=== PATIENT | female | born 1940 | race Caucasian/White ===

== ENCOUNTER → 2024-03-23 12:17 | Outpatient (CLI) | payer MEDICARE, SELFPAY ==
[2024-03-23 15:11] LABS: Vitamin B12 667 pg/mL (239-931)
== END ==
PROVIDERS: Referring Provider Internal Medicine; Visit Provider Internal Medicine
DX: D51.0 Vitamin B12 deficiency anemia due to intrinsic factor deficiency (principal)
CPT/HCPCS: 36415; 82607

== ENCOUNTER → 2024-05-11 09:52 | Outpatient (CLI) | payer MEDICARE, SELFPAY ==
[2024-05-11 10:47] LABS: Add Manual Diff / Slide Review NO; Basophils Absolute Auto 200 /uL (0-100); Basophils Percent Auto 2.2 % (0-2); Eosinophils Absolute Auto 400 /uL (0-450); Eosinophils Percent Auto 3.4 % (2-4); Hematocrit 41.5 % (36-46); Hemoglobin 13.7 g/dL (12.0-16.0); Lymphocytes Absolute Auto 2900 /uL (1100-4500); Lymphocytes Percent Auto 27.8 % (25-40); Mean Corpuscular HGB Conc 32.9 % (30-36); Mean Corpuscular Hemoglobin 30.7 PG (26-34); Mean Corpuscular Volume 93.1 fL (80-100); Monocytes Absolute Auto 1000 /uL (0-900); Monocytes Percent Auto 9.4 % (3-14); Neutrophils Absolute Auto 5900 /uL (1500-7000); Neutrophils Percent Auto 57.2 % (50-75); Platelet Count 253 X10^3/uL (150-400); Red Blood Cell Count 4.46 X10^6/uL (4.0-5.2); White Blood Cell Count 10.3 X10^3/uL (4.5-11.0)
[2024-05-11 10:54] LABS: Alanine Aminotransferase 18 IU/L (<35); Albumin Globulin Ratio 1.4 (1.0-2.8); Alkaline Phosphatase 115 U/L (38-126); Aspartate Aminotransferase 24 IU/L (14-36); BUN Creatinine Ratio 17.5 (6-22); Bilirubin Total 0.6 mg/dL (0.2-1.3); Blood Urea Nitrogen 22 mg/dL (7-17); Calcium 9.5 mg/dL (8.4-10.2); Carbon Dioxide 25 mmol/L (22-32); Chloride 111 mmol/L (98-107); Cholesterol 192 mg/dL (140-199); Estimated Glomerular Filt Rate 42 mL/min (>60); Globulin 2.8 g/dL (1.7-4.1); Glucose 117 mg/dL (80-110); HDL Cholesterol 47 mg/dL (40-60); HEMOLYSIS < 15 (0-50); LDL Cholesterol Calculated 104 mg/dL (<100); Lipase 352 U/L (23-300); Sodium 143 mmol/L (137-145); Total Protein 6.8 g/dL (6.3-8.2); Triglycerides 205 mg/dL (35-150)
[2024-05-11 11:08] LABS: Hemoglobin A1C% w Est Avg Glu 7.1 % (4.0-6.0)
[2024-05-11 11:32] LABS: TSH w/ Reflex to FT4 3.45 uIU/mL (0.47-4.68)
[2024-05-11 11:44] LABS: Vitamin B12 Reflex MMA if <400 688 pg/mL (239-931)
[2024-05-11 12:56] LABS: Creatinine Urine Random 136.74 mg/dL
== END ==
PROVIDERS: PCP Family Medicine; Referring Provider Family Medicine; Visit Provider Family Medicine
DX: Z00.00 Encounter for general adult medical examination without abnormal findings (principal); E11.9 Type 2 diabetes mellitus without complications; Z13.220 Encounter for screening for lipoid disorders; Z78.9 Other specified health status; Z76.89 Persons encountering health services in other specified circumstances; E03.9 Hypothyroidism, unspecified
CPT/HCPCS: 36415; 80053; 80061; 82043; 82570; 82607; 83036; 83690; 84443; 85025

== ENCOUNTER → 2024-06-25 14:59 | Outpatient (CLI) | payer MEDICARE, SELFPAY ==
--- NOTE | 2024-06-25 15:00 | DI.ECHO.S_ITS ---
[facility] : : [address] : : [place] : : [address] : : Phone: [phone] Echocardiogram Report + + :Name: EJ CHOI Study Date: 06/25/2024 Height: 66 in : :[facility] ReadingLocation: Weight: 167 lb : : Gender: Female BSA: 1.9 m2 : :: 1940 Age: 84 yrs BP: 173/70 mmHg: :Reason For Study: Atrial fibrillation : :Ordering Physician: CAROLA, : :LEVAR Performed By: Gabby Chavis : :Referring: LEVAR SRIVASTAVA : + + Interpretation Summary The left ventricle is normal in size. The ejection fraction is estimated to be 35-40%. Hypokinetic mid to distal inferoseptum, mid anteroseptum, mid to distal inferior wall, mid to distal inferior lateral wall. The right ventricular cavity is small. Visually RV function appears to be preserved. The left atrium is severely dilated. There is mild to moderate mitral regurgitation. There is mild to moderate aortic regurgitation. The IVC is of normal diameter and collapses greater than 50% with a sniff. This suggests a low right atrial pressure of 3 mm Hg. Procedure: A two-dimensional transthoracic echocardiogram with color flow and Doppler was performed. The study quality was technically adequate. There is no prior echocardiogram noted for this patient. The heart rate ranged between 61-67 bpm during the study. The patient was in normal sinus rhythm during the exam. Left Ventricle: The left ventricle is normal in size. Proximal septal thickening is noted. There is no echo evidence for significant left ventricular outflow tract obstruction. There is no thrombus. The ejection fraction is estimated to be 35-40%. Hypokinetic mid to distal inferoseptum, mid anteroseptum, mid to distal inferior wall, mid to distal inferior lateral wall. MV E/A: 0.52 Med Peak E' Julian: 3.0 cm/sec E/E' med: 21.5. Right Ventricle: The right ventricular cavity is small. Visually RV function appears to be preserved. Atria: The left atrium is severely dilated. Right atrial size is normal. The interatrial septum grossly appears intact with no obvious evidence for an atrial septal defect. Mitral Valve: The mitral valve leaflets appear mildly thickened, but open well. There is mild to moderate mitral annular calcification. There is mild to moderate mitral regurgitation. Aortic Valve: The aortic valve is trileaflet. The aortic valve opens well. There is no aortic valve stenosis. There is mild to moderate aortic regurgitation. Tricuspid Valve: The tricuspid valve is normal. There is trace tricuspid regurgitation. Pulmonary artery pressures cannot be estimated because of the lack of a measurable TR jet velocity. Pulmonic Valve: The pulmonic valve is normal in structure and function. There is no pulmonic valvular regurgitation. Great Vessels: The aortic root is normal size. The ascending aorta is normal in size. The aortic arch is normal in size. The IVC is of normal diameter and collapses greater than 50% with a sniff. This suggests a low right atrial pressure of 3 mm Hg. Pericardium/ Pleura There is no pericardial effusion. There is an anterior echo-free space consistent with a fat pad. There is no pleural effusion. MMode/2D Measurements & Calculations LVIDd: 5.0 cm LVOT diam: 1.9 cm LVIDs: 3.6 cm Ao root diam: 2.6 cm FS: 28.6 % asc Aorta Diam: 3.4 cm EPSS: 1.1 cm Ao Arch Diam (Prox Trans): 2.5 cm IVSd: 1.0 cm LVPWd: 0.74 cm LV sherman. diameter/BSA (cm/m^2): 2.7 LV sys. diameter/BSA (cm/m^2): 1.9 LA A2 area: 17.4 cm2 RA long axis: 5.3 cm LA A4 area: 22.1 cm2 RA area: 13.0 cm2 LA length (vol): 5.9 cm RA vol: 27.1 ml LA vol: 55.3 ml RA : 14.6 ml/m2 LA vol index: 29.9 ml/m2 IVC diam: 1.2 cm RVD1 (basal): 3.0 cm TAPSE: 1.6 cm Doppler Measurements & Calculations Ao V2 max: 158.1 cm/sec LVOT Max Julian: 84.1 cm/sec Ao V2 mean: 107.7 cm/sec LV V1 max P.8 mmHg Ao max P.0 mmHg LV V1 VTI: 19.4 cm Ao mean P.4 mmHg ARMANDO(I,D): 1.5 cm2 Ao V2 VTI: 37.2 cm ARMANDO(V,D): 1.5 cm2 sev ratio: 0.52 ARMANDO indexed to BSA (cm^2/m^2): 0.80 AI P1/2t: 394.5 msec AI dec slope: 316.3 cm/sec2 MV E max julian: 63.9 cm/sec PA V2 max: 97.5 cm/sec MV A max julian: 122.1 cm/sec PA V2 mean: 68.9 cm/sec MV E/A: 0.52 PA mean P.1 mmHg Med Peak E' Julian: 3.0 cm/sec E/E' med: 21.5 Lat Peak E' Julian: 9.3 cm/sec E/E' lat: 6.9 E/e' average: 14.2 MV dec time: 0.25 sec SV(LVOT): 55.2 ml Reading Physician:04:36 PM
== END ==
LOC: ECHO 14:59
PROVIDERS: PCP Family Medicine; Referring Provider Family Medicine; Visit Provider Family Medicine
DX: I08.0 Rheumatic disorders of both mitral and aortic valves (principal); I48.91 Unspecified atrial fibrillation
CPT/HCPCS: 93306

== ENCOUNTER 2024-07-16 13:45 | Outpatient (RCR) | payer MEDICARE, SELFPAY ==
--- NOTE | 2024-07-14 15:11 | PT.OIE ---
Current Diagnoses Unspecified dementia, unspecified severity, without behavioral disturbance, psychotic disturbance, mood disturbance, and anxiety (07/14/24) Weakness (07/14/24) Other specified personal risk factors, not elsewhere classified (07/14/24) Dependence on wheelchair (07/14/24) Visit Care Team Role Provider Type Hellen So DO Attending Provider Physician Family Provider Primary Care Provider Referring Provider Specialty: [facility] Practice Address: [address] [place] [address], [address], [facility] Email: [email or web address] Physical Therapy Initial Evaluation PT-OP-A Visit Information Start: 07/02/24 17:45 Freq: Status: Active Protocol: Document 07/14/24 13:49 [facility] (Rec: 07/14/24 15:10 [facility] [id number]) Out-Patient Physical Therapy Visit Information Visit Information Visit Type Initial Evaluation Visit Note 10/16 pt late Visit Start Time 13:55 Visit Stop Time 14:40 Visit Number 1 Number of GERIATRIC PSYCHIATRIST Visits 0 PT-OP-B Current Condition Start: 07/02/24 17:45 Freq: Status: Active Protocol: Document 07/14/24 13:49 [facility] (Rec: 07/14/24 15:10 [facility] [id number]) Current Condition History of Current Condition History of Current Condition Pt has dementia and dx about 4 years ago. New as of 4 years ago, pt has tremors and is c/o dizziness often but that is the side effect of dizziness. 5 months ago moved in with son after dgt in [place] who she lived with prior . She mostly stays on 1 floor but does okay w/stairs on split level home. Has a treadmill, infared sauna, wts, tbands. Pt indep w/ADLs. Son and DIL do cooking and cleaning. Had one fall about 1 year ago where fell into dresser. She got up at 2 am and fell. Son worried she may fall getting up in middle of night. They are trying to get into a neurologist to potentially help w/tremors Treatment Goals Patient/Caregiver Goals Keep limber and active and give her something to strengthen PT-OP-E Functional Tests Start: 07/02/24 17:45 Freq: Status: Active Protocol: Document 07/14/24 13:49 [facility] (Rec: 07/14/24 15:10 [facility] [id number]) Functional Tests 30 Second Sit to Stand Test Score 10x Dynamic Gait Index (DGI) Score 22 Five Times Sit to Stand Test Score 15 sec Functional Gait Assessment Score 18 (cued for head turns as pt otherwise unable) PT-OP-G Mobility & Gait Start: 07/02/24 17:45 Freq: Status: Active Protocol: Document 07/14/24 13:49 [facility] (Rec: 07/14/24 15:10 [facility] [id number]) OP Mobility Evaluation Bed Mobility Rolling indep Supine to and from Sit indep Transfers Sit to Stand indep Bed to Chair Transfers indep OP Gait Assessment Comments Gait Comments occ reaches for lewis or rails in clinic Stair Climbing Evaluation Comments Stair Climbing Comments recip up/down w/o rail PT-OP-M Strength Start: 07/02/24 17:45 Freq: Status: Active Protocol: Document 07/14/24 13:49 [facility] (Rec: 07/14/24 15:10 [facility] [id number]) Hip Strength Hip Manual Muscle Testing Right Flexion (L2) 4- Good- Abduction 4- Good- External Rotation 4- Good- Internal Rotation 4 Good Left Flexion (L2) 4- Good- Abduction 4- Good- External Rotation 4- Good- Internal Rotation 4 Good Knee Strength Knee Manual Muscle Testing Right Flexion (S2) 5 Normal Extension (L3) 5 Normal Left Flexion (S2) 5 Normal Extension (L3) 5 Normal Ankle/Foot Strength Ankle and Foot Manual Muscle Testing Right Dorsiflexion (L4) 4 Good Plantarflexion (S1) 4 Good Left Dorsiflexion (L4) 4 Good Plantarflexion (S1) 4 Good Comments PF tested seated PT-OP-Q Treatments Start: 07/02/24 17:45 Freq: Status: Active Protocol: Document 07/14/24 13:49 [facility] (Rec: 07/14/24 15:10 [facility] [id number]) Self-Care/Home Management Treatment Activities Self-Care/Home Management Activities 199/71 after all assesment; HR 65 After 5 min rest:188/76 edu to pt and son to monitor BP today and tomorrow mult times and if remains high to call primary office re: this. Edu on importance of this and son verbalizes understanding. Edu to cancel PT later this week if BP remains high edu to pt on importance of exercise for strength and balance to maintain stability edu on vestibular system and how that may affect balance.E du on importance of drinking fluids also for dizziness 10 min spent total PT-OP-T Assessment and Plan Start: 07/02/24 17:45 Freq: Status: Active Protocol: Document 07/14/24 13:49 [facility] (Rec: 07/14/24 15:10 [facility] [id number]) Physical Therapy Assessment Rehab Potential Rehabilitation Potential Good Evaluation Complexity Number of Personal Factors/Comorbidities 3 or More Number of Body Systems Impaired 4 or More Clinical Presentation at Evaluation Evolving Impairments Impairments Activity Tolerance,Balance, Functional Activities, Functional Mobility,Gait, Strength Goals balance Impairment FGA 17 Halfway Goal (LTG) Pt will improve score to at least 23 on FGA to show dec risk for falls. LTG Duration 09/22 strength Short Term Goal (STG) Pt will be indep w/HEP STG Duration 08/17 Halfway Goal (LTG) Pt will score at least 4+/5 on all BLE MMT in order to show improved strength to allow greater ease with daily activity. LTG Duration 09/22 Assessment Summary Assessment Pt presents w/ pt and son main concern is maintaing strength and balance as pt has not been very active at home. Pt does show risk for falls w/ testing today with FGA but overall did well with balance. Head turns did occasionally cause pt to note dizziness. Unknown cause of dizziness, but son reports doctors have considered that it is partly d /t meds. She does show some LE weakness overall and occasionally reaches for PT or wall to steady self dur day . Biggest concern today was high BP after activity and MD was notified immediately after appt and son to monitor and report to doctor if remains high. Pt would bneefit from PT for strenth and balance to dec risk for falls. Physical Therapy Plan Frequency and Duration Frequency of Treatment 2x/Week Duration of treatment (weeks) 10 Plan of Care Start Date 07/14/24 Plan of Care End Date 09/22/24 Therapeutic Interventions Therapeutic Interventions Balance Training,Canalithic Repositioning,Coordination Training,Gait Training,Home Exercise Program,Manual Therapy,Neuromuscular Re- education,Patient/Caregiver Education,Self-Care/Home Management,Therapeutic Activities,Therapeutic Exercises,Vestibular Rehabilitation Next Visit Focus/Plan Next Note Type Treatment Note Next Visit Plan check BP before starting (if too elevated, call doctors office to inform and cancel PT session) HEP: sit to stands, standing abd, march and ext, tandem balance in corner In clinic activities: fwd/back resisted walk, sidestep resisted, balance board, foam activities.
--- NOTE | 2024-07-14 15:11 | PT.OPPOC ---
Physical, Occupational & Speech Therapy At [facility] Current Diagnoses Unspecified dementia, unspecified severity, without behavioral disturbance, psychotic disturbance, mood disturbance, and anxiety (07/14/24) Weakness (07/14/24) Other specified personal risk factors, not elsewhere classified (07/14/24) Dependence on wheelchair (07/14/24) Visit Care Team Role Provider Type Hellen So DO Attending Provider Physician Family Provider Primary Care Provider Referring Provider Specialty: Family Practice Address: [address] [place] [address], [address], [facility] Email: [email or web address] Plan Of Care PT-OP-B Current Condition Start: 07/02/24 17:45 Freq: Status: Active Protocol: Document 07/14/24 13:49 [facility] (Rec: 07/14/24 15:10 [facility] [id number]) Current Condition History of Current Condition History of Current Condition Pt has dementia and dx about 4 years ago. New as of 4 years ago, pt has tremors and is c/o dizziness often but that is the side effect of dizziness. 5 months ago moved in with son after dgt in [place] who she lived with prior . She mostly stays on 1 floor but does okay w/stairs on split level home. Has a treadmill, infared sauna, wts, tbands. Pt indep w/ADLs. Son and DIL do cooking and cleaning. Had one fall about 1 year ago where fell into dresser. She got up at 2 am and fell. Son worried she may fall getting up in middle of night. They are trying to get into a neurologist to potentially help w/tremors Treatment Goals Patient/Caregiver Goals Keep limber and active and give her something to strengthen PT-OP-T Assessment and Plan Start: 07/02/24 17:45 Freq: Status: Active Protocol: Document 07/14/24 13:49 [facility] (Rec: 07/14/24 15:10 [facility] [id number]) Physical Therapy Assessment Rehab Potential Rehabilitation Potential Good Evaluation Complexity Number of Personal Factors/Comorbidities 3 or More Number of Body Systems Impaired 4 or More Clinical Presentation at Evaluation Evolving Impairments Impairments Activity Tolerance,Balance, Functional Activities, Functional Mobility,Gait, Strength Goals balance Impairment FGA 17 Field Broomer Goal (LTG) Pt will improve score to at least 23 on FGA to show dec risk for falls. LTG Duration 09/22 strength Short Term Goal (STG) Pt will be indep w/HEP STG Duration 08/17 Field Broomer Goal (LTG) Pt will score at least 4+/5 on all BLE MMT in order to show improved strength to allow greater ease with daily activity. LTG Duration 09/22 Assessment Summary Assessment Pt presents w/ pt and son main concern is maintaing strength and balance as pt has not been very active at home. Pt does show risk for falls w/ testing today with FGA but overall did well with balance. Head turns did occasionally cause pt to note dizziness. Unknown cause of dizziness, but son reports doctors have considered that it is partly d /t meds. She does show some LE weakness overall and occasionally reaches for PT or wall to steady self durng day . Biggest concern today was high BP after activity and MD was notified immediately after appt and son to monitor and report to doctor if remains high. Pt would bneefit from PT for strenth and balance to dec risk for falls. Physical Therapy Plan Frequency and Duration Frequency of Treatment 2x/Week Duration of treatment (weeks) 10 Plan of Care Start Date 07/14/24 Plan of Care End Date 09/22/24 Therapeutic Interventions Therapeutic Interventions Balance Training,Canalithic Repositioning,Coordination Training,Gait Training,Home Exercise Program,Manual Therapy,Neuromuscular Re- education,Patient/Caregiver Education,Self-Care/Home Management,Therapeutic Activities,Therapeutic Exercises,Vestibular Rehabilitation Next Visit Focus/Plan Next Note Type Treatment Note Next Visit Plan check BP before starting (if too elevated, call doctors office to inform and cancel PT session) HEP: sit to stands, standing abd, march and ext, tandem balance in corner In clinic activities: fwd/back resisted walk, sidestep resisted, balance board, foam activities. Plan of Care Dates Plan of Care Start Date 07/14/24 Plan of Care End Date 09/22/24 Electronically Signed by: Wendy Suh, PT 07/14/24 9803 If you are in agreement with this Plan of Care, please return a signed and dated copy. I have reviewed this Plan of Care and certify that the skilled therapy services above are required to meet the patient?s needs. Physician Signature Date Printed Name and Credentials Clinical Instructor Signature Printed Name and Credentials
--- NOTE | 2024-07-15 13:09 | PT-OP ANOTE ---
Pt son called to check in on BP and son says systolic has been in 150s and 170s at home, but the 170 was when pt was moving. He will cont to check today. Reminded pt son to contact doctor if BP is consistently high.
--- NOTE | 2024-07-16 14:26 | PT.OTN ---
Current Diagnoses Unspecified dementia, unspecified severity, without behavioral disturbance, psychotic disturbance, mood disturbance, and anxiety (07/16/24) Weakness (07/16/24) Other specified personal risk factors, not elsewhere classified (07/16/24) Dependence on wheelchair (07/16/24) Physical Therapy Treatment Note PT-OP-A Visit Information Start: 07/02/24 17:45 Freq: Status: Active Protocol: Document 07/16/24 13:54 [facility] (Rec: 07/16/24 14:26 [facility] [id number]) Out-Patient Physical Therapy Visit Information Visit Information Visit Type Treatment Note Visit Note 11/16 Visit Start Time 13:50 Visit Stop Time 14:05 Visit Number 2 Number of PHARMACY TECHNOLOGY INSTRUCTOR Visits 0 PT-OP-B Current Condition Start: 07/02/24 17:45 Freq: Status: Active Protocol: Document 07/14/24 13:49 [facility] (Rec: 07/14/24 15:10 [facility] [id number]) Current Condition History of Current Condition History of Current Condition Pt has dementia and dx about 4 years ago. New as of 4 years ago, pt has tremors and is c/o dizziness often but that is the side effect of dizziness. 5 months ago moved in with son after dgt in [place] who she lived with prior . She mostly stays on 1 floor but does okay w/stairs on split level home. Has a treadmill, infared sauna, wts, tbands. Pt indep w/ADLs. Son and DIL do cooking and cleaning. Had one fall about 1 year ago where fell into dresser. She got up at 2 am and fell. Son worried she may fall getting up in middle of night. They are trying to get into a neurologist to potentially help w/tremors Treatment Goals Patient/Caregiver Goals Keep limber and active and give her something to strengthen PT-OP-C Subjective Start: 07/02/24 17:45 Freq: Status: Active Protocol: Document 07/16/24 13:54 [facility] (Rec: 07/16/24 14:26 [facility] [id number]) OP-PT Subjective Patient Comments Patient Comments Pt reported she was dizzy upon arrival. Have been checking BPs. Had 145/56, 179/65, 172/ 74, 173/71 PT-OP-E Functional Tests Start: 09/26/24 17:45 Freq: Status: Active Protocol: Document 07/14/24 13:49 [facility] (Rec: 07/14/24 15:10 [facility] [id number]) Functional Tests 30 Second Sit to Stand Test Score 10x Dynamic Gait Index (DGI) Score 22 Five Times Sit to Stand Test Score 15 sec Functional Gait Assessment Score 18 (cued for head turns as pt otherwise unable) PT-OP-G Mobility & Gait Start: 07/02/24 17:45 Freq: Status: Active Protocol: Document 07/14/24 13:49 [facility] (Rec: 07/14/24 15:10 [facility] [id number]) OP Mobility Evaluation Bed Mobility Rolling indep Supine to and from Sit indep Transfers Sit to Stand indep Bed to Chair Transfers indep OP Gait Assessment Comments Gait Comments occ reaches for lewis or rails in clinic Stair Climbing Evaluation Comments Stair Climbing Comments recip up/down w/o rail PT-OP-M Strength Start: 07/02/24 17:45 Freq: Status: Active Protocol: Document 07/14/24 13:49 [facility] (Rec: 07/14/24 15:10 [facility] [id number]) Hip Strength Hip Manual Muscle Testing Right Flexion (L2) 4- Good- Abduction 4- Good- External Rotation 4- Good- Internal Rotation 4 Good Left Flexion (L2) 4- Good- Abduction 4- Good- External Rotation 4- Good- Internal Rotation 4 Good Knee Strength Knee Manual Muscle Testing Right Flexion (S2) 5 Normal Extension (L3) 5 Normal Left Flexion (S2) 5 Normal Extension (L3) 5 Normal Ankle/Foot Strength Ankle and Foot Manual Muscle Testing Right Dorsiflexion (L4) 4 Good Plantarflexion (S1) 4 Good Left Dorsiflexion (L4) 4 Good Plantarflexion (S1) 4 Good Comments PF tested seated PT-OP-Q Treatments Start: 07/02/24 17:45 Freq: Status: Active Protocol: Document 07/16/24 13:54 [facility] (Rec: 07/16/24 14:26 [facility] [id number]) Self-Care/Home Management Treatment Activities Self-Care/Home Management Activities 15 min: BP upon arrival 188/71 and BP after 8 min: 168/72. edu to pt and son re: not doing PT and physical exercise until BP is lower. PT called MD office and spoke to triage nurse who sent message to MD and they will follow up with patient. Asked son to check in with PT office as soon as he knows when they plant o manage it and plan to cancel any PT visit prior to her meeting with provider. Edu of signs of stroke or heart attack and to bring to ER if pt starts having any symptoms PT-OP-T Assessment and Plan Start: 07/02/24 17:45 Freq: Status: Active Protocol: Document 07/16/24 13:54 [facility] (Rec: 07/16/24 14:26 [facility] [id number]) Physical Therapy Assessment Goals balance Impairment FGA 17 Penitentiary Goal (LTG) Pt will improve score to at least 23 on FGA to show dec risk for falls. LTG Duration 09/22 strength Short Term Goal (STG) Pt will be indep w/HEP STG Duration 08/17 Penitentiary Goal (LTG) Pt will score at least 4+/5 on all BLE MMT in order to show improved strength to allow greater ease with daily activity. LTG Duration 09/22 Assessment Summary Assessment 15 min: BP upon arrival 188/71 and BP after 8 min: 168/72. edu to pt and son re: not doing PT and physical exercise until BP is lower. PT called MD office and spoke to triage nurse who sent message to MD and they will follow up with patient. Asked son to check in with PT office as soon as he knows when they plant o manage it and plan to cancel any PT visit prior to her meeting with provider. Edu of signs of stroke or heart attack and to bring to ER if pt starts having any symptoms Physical Therapy Plan Frequency and Duration Frequency of Treatment 2x/Week Duration of treatment (weeks) 10 Plan of Care Start Date 07/14/24 Plan of Care End Date 09/22/24 Next Visit Focus/Plan Next Note Type Treatment Note Next Visit Plan await starting until pt has change made by MD, check BP before starting (if too elevated, call doctors office to inform and cancel PT session) HEP: sit to stands, standing abd, december and ext, tandem balance in corner In clinic activities: fwd/back resisted walk, sidestep resisted, balance board, foam activities.
--- NOTE | 2024-07-27 13:15 | PT-OP ANOTE ---
Son responded via PT Connect (text) to cancel today's appt >24 hrs due to safety concern elevated BP with activity. LICENSING WORKER called and spoke to DIL regarding cancelled appt, DIL reported pt saw Dr So and has a referral to another Insurance Sales Supervisor, awaiting referral approval and appt. Pt's DIL reports her didn't ask Dr So if pt should continue PT at this time, so decided to hold appt today til pt got to see Insurance Sales Supervisor for safety and guidence of activity. Pt's BP reported was normal range at doctor appt but son states it goes up high with activity. Pt's DIL stated pt is going to [place] on Aug 12 for 2 months to visit and might have to see the Insurance Sales Supervisor and continue PT there if can't get an appt before then. Pt has another follow up appt with Dr So Aug 07.
--- NOTE | 2024-07-27 14:07 | PT.OPDS ---
Current Diagnoses Unspecified dementia, unspecified severity, without behavioral disturbance, psychotic disturbance, mood disturbance, and anxiety (07/16/24) Weakness (07/16/24) Other specified personal risk factors, not elsewhere classified (07/16/24) Dependence on wheelchair (07/16/24) Visit Care Team Role Provider Type Hellen So DO Attending Provider Physician Family Provider Primary Care Provider Referring Provider Specialty: Family Practice Address: [address] [place] [address], [address], [facility] Email: [email or web address] Visit Number Visit Number 2 Discharge Summary PT-OP-B Current Condition Start: 07/02/24 17:45 Freq: Status: Active Protocol: Document 07/14/24 13:49 [facility] (Rec: 07/14/24 15:10 [facility] [id number]) Current Condition History of Current Condition History of Current Condition Pt has dementia and dx about 4 years ago. New as of 4 years ago, pt has tremors and is c/o dizziness often but that is the side effect of dizziness. 5 months ago moved in with son after dgt in [place] who she lived with prior . She mostly stays on 1 floor but does okay w/stairs on split level home. Has a treadmill, infared sauna, wts, tbands. Pt indep w/ADLs. Son and DIL do cooking and cleaning. Had one fall about 1 year ago where fell into dresser. She got up at 2 am and fell. Son worried she may fall getting up in middle of night. They are trying to get into a neurologist to potentially help w/tremors Treatment Goals Patient/Caregiver Goals Keep limber and active and give her something to strengthen PT-OP-C Subjective Start: 07/02/24 17:45 Freq: Status: Active Protocol: Document 07/16/24 13:54 [facility] (Rec: 07/16/24 14:26 [facility] [id number]) OP-PT Subjective Patient Comments Patient Comments Pt reported she was dizzy upon arrival. Have been checking BPs. Had 145/56, 179/65, 172/ 74, 173/71 PT-OP-E Functional Tests Start: 07/02/24 17:45 Freq: Status: Active Protocol: Document 07/14/24 13:49 [facility] (Rec: 07/14/24 15:10 [facility] [id number]) Functional Tests 30 Second Sit to Stand Test Score 10x Dynamic Gait Index (DGI) Score 22 Five Times Sit to Stand Test Score 15 sec Functional Gait Assessment Score 18 (cued for head turns as pt otherwise unable) PT-OP-G Mobility & Gait Start: 07/02/24 17:45 Freq: Status: Active Protocol: Document 07/14/24 13:49 [facility] (Rec: 07/14/24 15:10 [facility] [id number]) OP Mobility Evaluation Bed Mobility Rolling indep Supine to and from Sit indep Transfers Sit to Stand indep Bed to Chair Transfers indep OP Gait Assessment Comments Gait Comments occ reaches for lewis or rails in clinic Stair Climbing Evaluation Comments Stair Climbing Comments recip up/down w/o rail PT-OP-M Strength Start: 07/02/24 17:45 Freq: Status: Active Protocol: Document 07/14/24 13:49 [facility] (Rec: 07/14/24 15:10 [facility] [id number]) Hip Strength Hip Manual Muscle Testing Right Flexion (L2) 4- Good- Abduction 4- Good- External Rotation 4- Good- Internal Rotation 4 Good Left Flexion (L2) 4- Good- Abduction 4- Good- External Rotation 4- Good- Internal Rotation 4 Good Knee Strength Knee Manual Muscle Testing Right Flexion (S2) 5 Normal Extension (L3) 5 Normal Left Flexion (S2) 5 Normal Extension (L3) 5 Normal Ankle/Foot Strength Ankle and Foot Manual Muscle Testing Right Dorsiflexion (L4) 4 Good Plantarflexion (S1) 4 Good Left Dorsiflexion (L4) 4 Good Plantarflexion (S1) 4 Good Comments PF tested seated PT-OP-T Assessment and Plan Start: 07/02/24 17:45 Freq: Status: Active Protocol: Document 07/27/24 14:02 [facility] (Rec: 07/27/24 14:07 [facility] [id number]) Physical Therapy Assessment Goals balance Impairment FGA 17 Collections Assistant Goal (LTG) Pt will improve score to at least 23 on FGA to show dec risk for falls. LTG Duration 09/22 strength Short Term Goal (STG) Pt will be indep w/HEP STG Duration 08/17 Mcfp Goal (LTG) Pt will score at least 4+/5 on all BLE MMT in order to show improved strength to allow greater ease with daily activity. LTG Duration 09/22 Assessment Summary Assessment Pt was on hold w/PT d/t BP issues and called doctor who cleared PT to resume. PT called son who asked to DC d/t BP still in 160s and wants to see cardio. Pt leaves for 6 months in 3 weeks also. DC d/t family request Physical Therapy Plan Discharge Physical Therapy Discharge Reasons Patient Request
== END 2024-08-05 15:04 | disposition home or self-care (01) ==
LOC: PHYS 13:45
PROVIDERS: Family Provider Family Medicine; PCP Family Medicine; Referring Provider Family Medicine; Visit Provider Family Medicine
DX: F03.90 Unspecified dementia, unspecified severity, without behavioral disturbance, psychotic disturbance, mood disturbance, and anxiety (principal); Z99.3 Dependence on wheelchair; Z91.89 Other specified personal risk factors, not elsewhere classified; R53.1 Weakness
CPT/HCPCS: 97162; 97535

== ENCOUNTER 2025-02-15 19:01 | Emergency (ER) | payer MEDICARE, SELFPAY ==
[2025-02-15] VITALS (7 sets, daily range): BP systolic 164–210; BP diastolic 75–100; PULSE 60–69; RESP 16–32; TEMP 36.9; O2SAT 94–96; BMI 28.6
[2025-02-15 19:57] LABS: Add Manual Diff / Slide Review NO; Basophils Absolute Auto 0 /uL (0-100); Basophils Percent Auto 0.3 % (0-2); Eosinophils Absolute Auto 300 /uL (0-450); Hematocrit 40.4 % (36-46); Hemoglobin 13.6 g/dL (12.0-16.0); Lymphocytes Absolute Auto 3000 /uL (1100-4500); Lymphocytes Percent Auto 31.5 % (25-40); Mean Corpuscular HGB Conc 33.6 % (30-36); Mean Corpuscular Hemoglobin 31.2 PG (26-34); Mean Corpuscular Volume 92.7 fL (80-100); Monocytes Absolute Auto 800 /uL (0-900); Monocytes Percent Auto 8.1 % (3-14); Neutrophils Absolute Auto 5500 /uL (1500-7000); Neutrophils Percent Auto 57.1 % (50-75); Platelet Count 254 X10^3/uL (150-400); Red Blood Cell Count 4.36 X10^6/uL (4.0-5.2); Red Cell Distribution Width 15.4 % (11.6-14.8); White Blood Cell Count 9.7 X10^3/uL (4.5-11.0)
[2025-02-15 19:59] LABS: Alanine Aminotransferase 29 IU/L (<35); Albumin 4.4 g/dL (3.5-5.0); Albumin Globulin Ratio 1.2 (1.0-2.8); Alkaline Phosphatase 105 U/L (38-126); Aspartate Aminotransferase 34 IU/L (14-36); BUN Creatinine Ratio 21.1 (6-22); Bilirubin Total 0.4 mg/dL (0.2-1.3); Blood Urea Nitrogen 24 mg/dL (7-17); Calcium 9.5 mg/dL (8.4-10.2); Carbon Dioxide 23 mmol/L (22-32); Chloride 109 mmol/L (98-107); Estimated Glomerular Filt Rate 47 mL/min (>60); Globulin 3.6 g/dL (1.7-4.1); Glucose 181 mg/dL (70-99); HEMOLYSIS < 15 (0-50); Lipase 356 U/L (23-300); Potassium 4.1 mmol/L (3.4-5.1); Sodium 141 mmol/L (137-145)
--- NOTE | 2025-02-15 23:00 | EKG_ITS ---
[place] [address] [place] [id number] Test Date: 2025-02-15 Pat Name: Angella Anne Department: [facility] Room: Gender: Female Hplc Chemist: : [id number] Requested By: Order Number: [id number] Reading MD: Mathew Segal MD Measurements Intervals [place] Rate: 62 P: 22 OK: 194 QRS: -45 QRSD: 140 T: 117 QT: 514 QTc: 521 Interpretive Statements Normal sinus rhythm Left axis deviation Left bundle branch block NO PRIOR TRACING Electronically Signed On 02-16-2025 7:43:29 PDT by Mathew Segal MD
== END 2025-02-15 23:41 | disposition left against medical advice (07) ==
PROVIDERS: Emergency Provider Emergency Medicine; Family Provider Family Medicine; PCP Family Medicine
DX: R10.9 Unspecified abdominal pain (principal); R45.1 Restlessness and agitation; R41.0 Disorientation, unspecified; F03.90 Unspecified dementia, unspecified severity, without behavioral disturbance, psychotic disturbance, mood disturbance, and anxiety
CPT/HCPCS: 36415; 80053; 81003; 83690; 85025; 93005; 93010; 99283

== ENCOUNTER 2025-03-09 19:01 | Emergency (ER) | payer MEDICARE, SELFPAY ==
[2025-03-09] VITALS (8 sets, daily range): BP systolic 169–191; BP diastolic 76–96; PULSE 62–67; RESP 18; TEMP 36.6; O2SAT 94–100
--- NOTE | 2025-03-09 19:44 | ED.NECK ---
HPI - Neck Pain/Injury General Chief Complaint: Neck Pain/Injury Stated Complaint: Neck pain x3 days Time Seen by Provider: 03/09/25 19:44 Mode of arrival: EMS History of Present Illness HPI Narrative: 85-year-old female with 3 days duration of nhnvu-lfrwcwk-kbxh-left neck discomfort, possibly from sleep, no new activities, no injury or trauma recalled. No numbness or tingling to either arm. Pain worse with head/neck movements. No photophobia or headache. Also some more frequency of urination, history of urinary tract infections. No fevers or chills. No back pain. No anterior abdominal discomfort. Related Data Home Medications ?Medication ?Instructions ?Recorded ?Confirmed atorvastatin 40 mg tablet 40 mg PO DAILY 05/08/24 07/23/24 cholecalciferol (vitamin D3) 1,250 1,250 mcg PO QWEEK 05/08/24 07/23/24 mcg (50,000 unit) capsule diazepam 2 mg tablet (Valium) 2 mg PO BEDTIME PRN 05/08/24 07/23/24 empagliflozin 25 mg tablet 25 mg PO DAILY 05/08/24 07/23/24 (Jardiance) ezetimibe 10 mg tablet 10 mg PO DAILY 05/08/24 07/23/24 glipizide 10 mg tablet 10 mg PO DAILY 05/08/24 07/23/24 levothyroxine 25 mcg tablet 25 mcg PO DAILY 05/08/24 07/23/24 nitroglycerin 0.4 mg sublingual 0.4 mg sublingual Q5M PRN 05/08/24 07/23/24 tablet pantoprazole 40 mg tablet,delayed 40 mg PO DAILY 05/08/24 07/23/24 release pioglitazone 15 mg tablet 15 mg PO DAILY 05/08/24 07/23/24 Previous Rx's ?Medication ?Instructions ?Recorded atenolol 25 mg tablet 25 mg PO BID hypertension #180 tabs 07/15/24 apixaban 5 mg tablet (Eliquis) 5 mg PO BID #180 tabs 09/21/24 memantine 10 mg tablet 10 mg PO BID #180 tabs 10/30/24 dulaglutide 1.5 mg/0.5 mL 1.5 mg (0.5 mL) SUBCUT QWEEK #2 mL 11/23/24 subcutaneous pen injector (Trulicity) biuydo-uxufbwex-ybpsooh 1 cap PO BID #180 caps 02/24/25 12,000-38,000-60,000 unit capsule,delayed rel (Creon) losartan 25 mg tablet 25 mg PO DAILY #30 tabs 02/26/25 ciprofloxacin HCl 500 mg tablet 500 mg PO BID #14 tabs 03/09/25 (Cipro) methocarbamol 500 mg tablet 500 mg PO TID 7 days #21 tabs 03/09/25 Allergies Allergy/AdvReac Type Severity Reaction Status Date / Time Sulfa (Sulfonamide Allergy trouble Verified 03/09/25 19:31 Antibiotics) breathing CODEINE Allergy Intermediate Uncoded 03/09/25 19:31 From MACRODANTIN Allergy Intermediate Uncoded 03/09/25 19:31 PCN (PENICILLIN) Allergy Intermediate Uncoded 03/09/25 19:31 Patient History tobacco type: cigarettes Exam Narrative Exam Narrative: GENERAL: Well-developed patient, in mild distress. HEAD: Atraumatic. Normocephalic. EYES: Pupils equal round and reactive. Extraocular motions intact. No scleral icterus. No injection or drainage. ENT: Nose without bleeding, purulent drainage. Throat without erythema, tonsillar hypertrophy or exudate. Airway patent. NECK: Trachea midline. Mild tenderness lateral right paracervical musculature, some on left side as well, no midline tenderness however. Not particularly tender in left superior trapezius but some tenderness right superior trapezius. No tenderness along superior rhomboid musculature. CARDIOVASCULAR: Regular rate and rhythm without murmurs, gallops, or rubs. RESPIRATORY: Clear to auscultation. Breath sounds equal bilaterally. No wheezes, rales, or rhonchi. GASTROINTESTINAL: Abdomen soft, non-tender, nondistended. EXTREMITIES: No edema or joint tenderness. BACK: Nontender without deformity or crepitance. No flank tenderness. NEURO: AOx3. Motor functions grossly nonfocal. SKIN: No rash or erythema of visible areas Initial Vital Signs Initial Vital Signs: Vital Signs Temperature 97.9 F 03/09/25 19:31 Pulse Rate 67 03/09/25 19:31 Respiratory Rate 18 03/09/25 19:31 Blood Pressure 188/83 H 03/09/25 19:31 Pulse Oximetry 95 03/09/25 19:31 Oxygen Delivery Method Room Air 03/09/25 19:31 Course Orders Ordered: ED Orders 03/09/25 20:45 Urinalysis and Microscopic Stat Urine Culture Stat Discontinued Medications Cephalexin HCl (Cephalexin 250 Mg Capsule) 500 mg PO NOW ONE Stop: 03/09/25 21:39 Ciprofloxacin (Ciprofloxacin 250 Mg Tablet) 500 mg PO NOW ONE Stop: 03/09/25 21:40 Last Admin: 03/09/25 21:42 Dose: 500 mg Documented By: ROSEY Methocarbamol (Methocarbamol 500 Mg Tablet) 500 mg PO NOW ONE Stop: 03/09/25 20:00 Last Admin: 03/09/25 20:26 Dose: 500 mg Documented By: Vital Signs Vital signs: Vital Signs - 8 hr 03/09/25 19:31 03/09/25 20:00 03/09/25 20:08 Temperature 97.9 F Pulse Rate 67 Respiratory Rate 18 Blood Pressure 188/83 H 191/76 H Pulse Oximetry 95 100 Oxygen Delivery Method Room Air 03/09/25 20:09 03/09/25 20:09 03/09/25 20:30 Temperature Pulse Rate 64 62 Respiratory Rate Blood Pressure 169/76 H Pulse Oximetry 95 94 Oxygen Delivery Method Room Air 03/09/25 20:30 03/09/25 21:00 03/09/25 21:00 Temperature Pulse Rate 62 Respiratory Rate Blood Pressure 180/96 H 186/77 H Pulse Oximetry 95 Oxygen Delivery Method 03/09/25 21:30 03/09/25 21:31 03/09/25 21:31 Temperature Pulse Rate 62 62 Respiratory Rate Blood Pressure 177/78 H Pulse Oximetry 95 95 Oxygen Delivery Method MDM - Neck Pain/Injury Lab Data Labs: Lab Results 03/09/25 Range/Units 20:45 Urine Color Yellow Urine Appearance Clear Urine pH 5.5 (4.5-8.0) Ur Specific [place] 1.010 (1.000-1.035) Urine Protein Negative (Negative) Urine Glucose (UA) 3+ H (Negative) g/dL Urine Ketones Negative (NEGATIVE) Urine Occult Blood Trace-intact (Negative) Urine Nitrate Negative (Negative) Urine Bilirubin Negative (NEGATIVE) Urine Urobilinogen 0.2 (0.2) E.U./dL Ur Leukocyte Esterase Trace H (NEGATIVE) Urine RBC 1-5/hpf (0-5/HPF) Urine WBC 10-30/hpf H (0-5/HPF) Ur Squamous Epith Cells 0-1 /hpf (0-5/HPF) Urine Bacteria Few (2-10) H (None) Ur Culture Indicated? Specimen cultured Vol Urine Centrifuged 10ml (spun) MDM Narrative Medical decision making narrative: 85-year-old female with right greater than left neck pain, some tenderness on exam, possibly sleep related, for 3 days. We discussed zeyt-xcn-djkaidz analgesics. Trial of mild muscle relaxant, given dose of methocarbamol/Robaxin, prescription sent to her pharmacy. Also recent urinary frequency, history of urinary tract infections, urine was sent in suspicious for infection, urine culture triggered by protocol, gave 1st dose cephalexin oral antibiotic, prescription for further antibiotics sent to her pharmacy. Discharged home with iayucasi-to-gca. Return precautions discussed. Discharge Plan Departure Patient Disposition: Home Clinical Impression: Neck strain, Urinary tract infection Activity Restrictions/Additional Instructions: Three days duration of xvucv-jtdhkmk-nriw-left neck muscle discomfort, worse with attempted movements. No trauma injury new activities. No numbness or tingling to right arm or left arm. Likely musculoskeletal, trial of muscle relaxant, given dose of methocarbamol/Robaxin, prescription sent to your pharmacy. Consider use of klyx-kbh-nbdjjrt Tylenol for pain control as well. Also concern for possible urine infection, urinalysis was in fact suspicious for infection. Urine culture was sent. Oral ciprofloxacin antibiotic given, prescription sent to your pharmacy. Take antibiotics as directed. Drink plenty of fluids. Recheck symptoms with your regular doctor in urine culture results in the next 2-3 days. Return earlier to this/nearest emergency department for any change worsening symptoms or any concerns prior. Prescriptions: New methocarbamol 500 mg tablet 500 mg PO TID 7 Days Qty: 21 0RF ciprofloxacin HCl [Cipro] 500 mg tablet 500 mg PO BID Qty: 14 0RF No Action atenolol 25 mg tablet 25 mg PO BID Qty: 180 1RF Rx Instructions: Dose decreased. Please d/c 50 mg bid. Thanks! Eliquis 5 mg tablet 5 mg PO BID Qty: 180 1RF memantine 10 mg tablet 10 mg PO BID Qty: 180 3RF Rx Instructions: Dose changed. Trulicity 1.5 mg/0.5 mL pen injector 1.5 mg SUBCUT QWEEK Qty: 2 3RF Creon 12,000-38,000 -60,000 unit capsule,delayed release(DR/EC) 1 cap PO BID Qty: 180 1RF Rx Instructions: administer with meals and/or snacks losartan 25 mg tablet 25 mg PO DAILY Qty: 30 6RF Rx Instructions: Dose change. pioglitazone 15 mg tablet 15 mg PO DAILY atorvastatin 40 mg tablet 40 mg PO DAILY ezetimibe 10 mg tablet 10 mg PO DAILY glipizide 10 mg tablet 10 mg PO DAILY Jardiance 25 mg tablet 25 mg PO DAILY levothyroxine 25 mcg tablet 25 mcg PO DAILY pantoprazole 40 mg tablet,delayed release (DR/EC) 40 mg PO DAILY cholecalciferol (vitamin D3) 1,250 mcg (50,000 unit) capsule 1,250 mcg PO QWEEK nitroglycerin 0.4 mg tablet, sublingual 0.4 mg sublingual Q5M PRN Rx Instructions: do not exceed 3 doses per episode diazepam [Valium] 2 mg tablet 2 mg PO BEDTIME PRN Referrals: Hellen So DO [Primary Care Provider, Family Practice] Stand Alone Forms: Patient Portal/API
[2025-03-09] MEDS: methocarbamoL 500 MG TABLET PO (20:26)
[2025-03-09 20:55] LABS: Appearance Urine UA CLEAR; Bilirubin Urine UA NEGATIVE (NEGATIVE); Color Urine UA YELLOW; Glucose Urine UA 3+ g/dL (Negative); Ketones Urine UA NEGATIVE (NEGATIVE); Leukocyte Esterase Urine UA TRACE (NEGATIVE); Nitrite Urine UA NEGATIVE (Negative); Occult Blood Urine UA TRACE-INTACT (Negative); Protein Urine UA NEGATIVE (Negative); Urobilinogen Urine UA 0.2 E.U./dL (0.2)
[2025-03-09 20:58] LABS: pH Urine UA 5.5 (4.5-8.0)
[2025-03-09 21:03] LABS: Bacteria Urine Few (2-10); Culture Indicated Urine Specimen Cultured; RBC Urine 1-5/HPF (0-5/HPF); Squamous Epithelial Cell Urine 0-1 /HPF (0-5/HPF); Urine Volume 10mL (spun); WBC Urine 10-30/HPF (0-5/HPF)
[2025-03-09] MEDS: CIPROFLOXACIN 250 MG TABLET 500 MG PO (21:42)
== END 2025-03-09 21:49 | disposition home or self-care (01) ==
PROVIDERS: Emergency Provider Emergency Medicine; Family Provider Family Medicine; PCP Family Medicine
DX: N39.0 Urinary tract infection, site not specified (principal); S16.1XXA Strain of muscle, fascia and tendon at neck level, initial encounter; X58.XXXA Exposure to other specified factors, initial encounter
CPT/HCPCS: 81001; 87086; 99283

== ENCOUNTER → 2025-04-15 13:02 | Outpatient (CLI) | payer MEDICARE, SELFPAY ==
--- NOTE | 2025-04-15 13:03 | DI.CT.S_ITS ---
PROCEDURE: CT HEAD/BRAIN WO CON INDICATIONS: TREMOR TECHNIQUE: Noncontrast 4.5 mm thick angled axial sections acquired from the foramen magnum to the vertex, with coronal and sagittal reformats. For radiation dose reduction, the following was used: automated exposure control, adjustment of mA and/or kV according to patient size. COMPARISON: None. FINDINGS: Image quality: Diagnostic. CSF spaces: Basal cisterns are patent. No extra-axial fluid collections. The ventricles are symmetric in size and shape. Brain: No intracranial bleeds. There is enlarged relatively hyperdense mass within the sella measuring 1.3 x 1.2 x 1.7 cm. The sella floor appears thinned/displaced. There is upward displacement of the optic chiasm. No priors. There is cerebral volume loss, with resultant ventricular and sulcal prominence. There are periventricular and deep white matter chronic small vessel ischemic changes. There is intracranial internal carotid artery atherosclerosis. Skull and face: Calvarium and visualized facial bones appear intact, without suspicious lesions. Sinuses: Visualized sinuses and mastoids are clear. 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 However, other etiologies cannot be excluded. MRI with pituitary protocol is recommended for further evaluation. Dictated by: Linda Heredia M.D. on 04/17/2025 at 21:20 Approved by: Linda Heredia M.D. on 04/17/2025 at 21:22
== END ==
LOC: CT 13:03
PROVIDERS: Family Provider Family Medicine; PCP Family Medicine; Referring Provider Psychiatry & Neurology Neurology; Visit Provider Psychiatry & Neurology Neurology
DX: G25.2 Other specified forms of tremor (principal); G93.9 Disorder of brain, unspecified; R41.3 Other amnesia; G24.3 Spasmodic torticollis; I65.29 Occlusion and stenosis of unspecified carotid artery
CPT/HCPCS: 70450

== ENCOUNTER → 2025-04-29 08:15 | Outpatient (CLI) | payer MEDICARE, SELFPAY ==
[2025-04-29 10:09] LABS: Hemoglobin A1C% w Est Avg Glu 6.9 % (4.0-6.0)
[2025-04-29 18:19] LABS: Bilirubin Urine UA NEGATIVE (NEGATIVE); Color Urine UA YELLOW; Glucose Urine UA 3+ g/dL (Negative); Ketones Urine UA NEGATIVE (NEGATIVE); Leukocyte Esterase Urine UA 1+ (NEGATIVE); Nitrite Urine UA NEGATIVE (Negative); Occult Blood Urine UA TRACE-INTACT (Negative); Protein Urine UA NEGATIVE (Negative); Specific Gravity Urine UA 1.015 (1.000-1.035); Urobilinogen Urine UA 0.2 E.U./dL (0.2)
[2025-04-29 18:28] LABS: Appearance Urine UA SL CLOUDY; pH Urine UA 5.5 (4.5-8.0)
[2025-04-29 18:29] LABS: Culture Indicated Urine Specimen Cultured
== END ==
PROVIDERS: Family Provider Family Medicine; PCP Family Medicine; Referring Provider Family Medicine; Visit Provider Family Medicine
DX: E11.9 Type 2 diabetes mellitus without complications (principal); N39.0 Urinary tract infection, site not specified; Z22.338 Carrier of other streptococcus
CPT/HCPCS: 36415; 81001; 83036; 87070; 87086

== ENCOUNTER 2025-05-08 11:25 | Emergency (ER) | payer MEDICARE, SELFPAY ==
[2025-05-08 11:41] VITALS: BP 185/78; PULSE 56; RESP 17; TEMP 36.6; O2SAT 939
[2025-05-08 11:53] LABS: Add Manual Diff / Slide Review NO; Hematocrit 40.8 % (36-46); Hemoglobin 13.4 g/dL (12.0-16.0); Lymphocytes Absolute Auto 4200 /uL (1100-4500); Mean Corpuscular HGB Conc 32.7 % (30-36); Mean Corpuscular Hemoglobin 30.5 PG (26-34); Mean Corpuscular Volume 93.1 fL (80-100); Platelet Count 302 X10^3/uL (150-400)
[2025-05-08 11:58] LABS: Appearance Urine UA CLEAR; Bilirubin Urine UA NEGATIVE (NEGATIVE); Color Urine UA YELLOW; Glucose Urine UA 3+ g/dL (Negative); Ketones Urine UA NEGATIVE (NEGATIVE); Leukocyte Esterase Urine UA TRACE (NEGATIVE); Nitrite Urine UA NEGATIVE (Negative); Occult Blood Urine UA NEGATIVE (Negative); Protein Urine UA NEGATIVE (Negative); Specific Gravity Urine UA 1.010 (1.000-1.035); Urobilinogen Urine UA 0.2 E.U./dL (0.2)
[2025-05-08 11:58] LABS: Lactate (Lactic Acid) 1.3 mmol/L (0.7-2.1)
[2025-05-08 11:59] LABS: Alanine Aminotransferase 15 IU/L (<35); Albumin 4.2 g/dL (3.5-5.0); Albumin Globulin Ratio 1.1 (1.0-2.8); Alkaline Phosphatase 117 U/L (38-126); Blood Urea Nitrogen 27 mg/dL (7-17); Calcium 9.9 mg/dL (8.4-10.2); Carbon Dioxide 19 mmol/L (22-32); Chloride 112 mmol/L (98-107); Estimated Glomerular Filt Rate 42 mL/min (>60); Globulin 3.7 g/dL (1.7-4.1); Glucose 151 mg/dL (70-99); HEMOLYSIS < 15 (0-50); Potassium 4.2 mmol/L (3.4-5.1); Sodium 142 mmol/L (137-145); Total Protein 7.9 g/dL (6.3-8.2)
[2025-05-08 12:00] LABS: pH Urine UA 5.0 (4.5-8.0)
[2025-05-08 12:12] LABS: Culture Indicated Urine Cult Not Indicated
[2025-05-08 12:15] LABS: Procalcitonin 0.068 ng/mL (<0.5)
--- NOTE | 2025-05-08 13:05 | ED.BACK ---
HPI - Back Pain/Injury General Chief Complaint: Back Pain/Injury Stated Complaint: UTI, back pain Time Seen by Provider: 05/08/25 11:29 Source: patient and EMS History of Present Illness HPI Narrative: 85-year-old female with baseline dementia, diabetes comes in with lower back pain and frequent urination. Patient brought in by paramedics by er. No fever no chills noted. Patient denies any symptoms here in the ED. Related Data Home Medications ?Medication ?Instructions ?Recorded ?Confirmed cholecalciferol (vitamin D3) 1,250 1,250 mcg PO QWEEK 05/08/24 04/29/25 mcg (50,000 unit) capsule diazepam 2 mg tablet (Valium) 2 mg PO BEDTIME PRN 05/08/24 04/29/25 nitroglycerin 0.4 mg sublingual 0.4 mg sublingual Q5M PRN 05/08/24 04/29/25 tablet pantoprazole 40 mg tablet,delayed 40 mg PO DAILY 05/08/24 04/29/25 release losartan 50 mg tablet 50 mg PO DAILY 04/29/25 04/29/25 Previous Rx's ?Medication ?Instructions ?Recorded qnfcwc-abxwwoan-kdavoxt 1 cap PO BID #180 caps 02/24/25 12,000-38,000-60,000 unit capsule,delayed rel (Creon) ezetimibe 10 mg tablet 10 mg PO DAILY #90 tabs 03/18/25 glipizide 10 mg tablet 10 mg PO DAILY #90 tabs 03/18/25 levothyroxine 25 mcg tablet 25 mcg PO DAILY #90 tabs 03/18/25 memantine 10 mg tablet 10 mg PO BID #180 tabs 03/18/25 apixaban 5 mg tablet (Eliquis) 5 mg PO BID #180 tabs 03/22/25 atorvastatin 40 mg tablet 40 mg PO DAILY #90 tabs 03/22/25 dulaglutide 1.5 mg/0.5 mL 1.5 mg (0.5 mL) SUBCUT QWEEK #2 mL 03/22/25 subcutaneous pen injector (Trulicity) empagliflozin 25 mg tablet 25 mg PO DAILY #90 tabs 03/22/25 (Jardiance) pioglitazone 15 mg tablet 15 mg PO DAILY #90 tabs 04/14/25 doxycycline hyclate 100 mg tablet 100 mg PO BID #6 tabs 04/29/25 propranolol 20 mg tablet 20 mg PO BID #60 tabs 04/29/25 azithromycin 250 mg tablet 250 mg PO DAILY 8 days #9 tabs 05/08/25 Allergies Allergy/AdvReac Type Severity Reaction Status Date / Time cefuroxime Allergy Severe Anaphylaxis Verified 05/08/25 11:42 levofloxacin Allergy Mild unkown Verified 05/08/25 11:42 metronidazole Allergy Mild unknown Verified 05/08/25 11:42 nitrofurantoin Allergy Mild unknown Verified 05/08/25 11:42 sulindac Allergy Mild Swelling Verified 04/29/25 14:00 of Lip/Tongue/Throat Sulfa (Sulfonamide Allergy trouble Verified 05/08/25 11:42 Antibiotics) breathing cephalothin AdvReac Mild unknown Verified 05/08/25 11:42 doxycycline AdvReac Mild unkown Verified 05/08/25 11:42 prednisone AdvReac Mild unknown Verified 05/08/25 11:42 CODEINE Allergy Intermediate Uncoded 05/08/25 11:42 From MACRODANTIN Allergy Intermediate Uncoded 05/08/25 11:42 Review of Systems Review of Systems ROS Unobtainable: All systems reviewed & are unremarkable except as noted in HPI and below Patient History tobacco type: cigarettes Exam Narrative Exam Narrative: General: Patient appears to be in no acute distress, acting appropriately Head: normocephalic, atraumatic, HEENT: Pupils equal round reactive, eyes tracking well, neck supple, no JVD Heart: regular rate and rhythm, no murmurs, rubs, or gallops heard Lungs: clear to auscultation, no adventitious sounds Abdomen: soft , nontender, nondistended, positive bowel sounds Neurological: no focal neurological signs, moving all extremities well, alert and oriented x2 Psych: pleasantly demented Initial Vital Signs Initial Vital Signs: Vital Signs Temperature 97.9 F 05/08/25 11:41 Pulse Rate 56 L 05/08/25 11:41 Respiratory Rate 17 05/08/25 11:41 Blood Pressure 185/78 H 05/08/25 11:41 Pulse Oximetry 939 H 05/08/25 11:41 Oxygen Delivery Method Room Air 05/08/25 11:41 Course Course Course Narrative: Go ahead and treat the patient for an acute UTI picture with Zosyn iv x 1 due to patient's allergies. Orders Ordered: ED Orders 05/08/25 11:35 CBC Auto Diff [Complete Blood Count AUTO DIFF] Stat Lactate (Lactic Acid) Stat 05/08/25 11:39 CMP [Comprehensive Metabolic Panel] Stat Procalcitonin Stat Urinalysis and Microscopic Stat Discontinued Medications Piperacillin Sod/Tazobactam (Sod 3.375 gm/ Sodium Chloride) 100 mls @ 25 mls/hr IV NOW ONE Stop: 05/08/25 13:15 Last Admin: 05/08/25 13:34 Dose: 25 mls/hr Documented By: CTS Reevaluation(s) Reevaluation #1: Upon re-evaluation, patient is pleasantly demented still in finished her IV antibiotics with no issues. Vital Signs Vital signs: Vital Signs - 8 hr 05/08/25 11:41 05/08/25 13:35 Temperature 97.9 F Pulse Rate 56 L 60 Respiratory Rate 17 16 Blood Pressure 185/78 H 145/64 H Pulse Oximetry 939 H 97 Oxygen Delivery Method Room Air Room Air MDM - Back Pain/Injury Differential Diagnosis Differential diagnosis: Likely renal colic, pyelonephritis and other (uti) Lab Data 05/08/25 11:35 05/08/25 11:39 Labs: Lab Results 05/08/25 05/08/25 Range/Units 11:35 11:39 WBC 11.2 H (4.5-11.0) X10^3/uL RBC 4.38 (4.0-5.2) X10^6/uL Hgb 13.4 (12.0-16.0) g/dL Hct 40.8 (36-46) % MCV 93.1 (80-100) fL MCH 30.5 (26-34) PG MCHC 32.7 (30-36) % RDW 14.9 H (11.6-14.8) % Plt Count 302 (150-400) X10^3/uL Neut % (Auto) 49.8 L (50-75) % Lymph % (Auto) 37.1 (25-40) % [place] % (Auto) 9.0 (3-14) % Eos % (Auto) 3.1 (2-4) % Baso % (Auto) 1.0 (0-2) % Neut # (Auto) 5600 (9412-8445) /uL Lymph # (Auto) 4200 (1126-5542) /uL [place] # (Auto) 1000 H (0-900) /uL Eos # (Auto) 300 (0-450) /uL Baso # (Auto) 100 (0-100) /uL Sodium 142 (137-145) mmol/L Potassium 4.2 (3.4-5.1) mmol/L Chloride 112 H (98-107) mmol/L Carbon Dioxide 19 L (22-32) mmol/L BUN 27 H (7-17) mg/dL Creatinine 1.24 H (0.52-1.04) mg/dL Estimated GFR 42 L (>60) mL/min BUN/Creatinine Ratio 21.8 (6-22) Glucose 151 H (70-99) mg/dL Lactate 1.3 (0.7-2.1) mmol/L Calcium 9.9 (8.4-10.2) mg/dL Total Bilirubin 0.6 (0.2-1.3) mg/dL AST 25 (14-36) IU/L ALT 15 (<35) IU/L Alkaline Phosphatase 117 (38-126) U/L Total Protein 7.9 (6.3-8.2) g/dL Albumin 4.2 (3.5-5.0) g/dL Globulin 3.7 (1.7-4.1) g/dL Albumin/Globulin Ratio 1.1 (1.0-2.8) Procalcitonin 0.068 (<0.5) ng/mL Urine Color Yellow Urine Appearance Clear Urine pH 5.0 (4.5-8.0) Ur Specific [place] 1.010 (1.000-1.035) Urine Protein Negative (Negative) Urine Glucose (UA) 3+ H (Negative) g/dL Urine Ketones Negative (NEGATIVE) Urine Occult Blood Negative (Negative) Urine Nitrate Negative (Negative) Urine Bilirubin Negative (NEGATIVE) Urine Urobilinogen 0.2 (0.2) E.U./dL Ur Leukocyte Esterase Trace H (NEGATIVE) Urine RBC 0-1/hpf (0-5/HPF) Urine WBC 1-5/hpf (0-5/HPF) Ur Squamous Epith Cells 5-10 /hpf H (0-5/HPF) Urine Bacteria Occasional (0-1) (None) Ur Culture Indicated? Cult not indicated Vol Urine Centrifuged 10ml (spun) MDM Narrative Medical decision making narrative: Patient treated for an acute UTI and given Zosyn IV x1 here due to her allergies. According to her family, patient does well with azithromycin as an outpatient for her UTIs. We will give her a 7 day course of azithromycin. Discharge Plan Departure Patient Disposition: Home Clinical Impression: Acute UTI Instructions: DI for Urinary Tract Infection (UTI) Activity Restrictions/Additional Instructions: Take antibiotics as prescribed and follow up if symptoms worsen. Prescriptions: New azithromycin 250 mg tablet 250 mg PO DAILY 8 Days Qty: 9 0RF Rx Instructions: take 2 tabs po on day, then 1 tab po daily x 7 days No Action Creon 12,000-38,000 -60,000 unit capsule,delayed release(DR/EC) 1 cap PO BID Qty: 180 1RF Rx Instructions: administer with meals and/or snacks ezetimibe 10 mg tablet 10 mg PO DAILY Qty: 90 1RF levothyroxine 25 mcg tablet 25 mcg PO DAILY Qty: 90 1RF memantine 10 mg tablet 10 mg PO BID Qty: 180 1RF glipizide 10 mg tablet 10 mg PO DAILY Qty: 90 1RF Eliquis 5 mg tablet 5 mg PO BID Qty: 180 0RF atorvastatin 40 mg tablet 40 mg PO DAILY Qty: 90 0RF Trulicity 1.5 mg/0.5 mL pen injector 1.5 mg SUBCUT QWEEK Qty: 2 3RF Jardiance 25 mg tablet 25 mg PO DAILY Qty: 90 0RF pioglitazone 15 mg tablet 15 mg PO DAILY Qty: 90 0RF pantoprazole 40 mg tablet,delayed release (DR/EC) 40 mg PO DAILY cholecalciferol (vitamin D3) 1,250 mcg (50,000 unit) capsule 1,250 mcg PO QWEEK nitroglycerin 0.4 mg tablet, sublingual 0.4 mg sublingual Q5M PRN Rx Instructions: do not exceed 3 doses per episode diazepam [Valium] 2 mg tablet 2 mg PO BEDTIME PRN losartan 50 mg tablet 50 mg PO DAILY propranolol 20 mg tablet 20 mg PO BID Qty: 60 3RF doxycycline hyclate 100 mg tablet 100 mg PO BID Qty: 6 0RF Referrals: Hellen So DO [Primary Care Provider, Family Practice] Stand Alone Forms: Patient Portal/API
[2025-05-08] MEDS: PIPERACILLIN/TAZO 3.375 GM in SODIUM CHLORIDE 0.9% 100 ML IV (13:34)
[2025-05-08 13:35] VITALS: BP 145/64; PULSE 58; PULSE 60; RESP 16; O2SAT 95; O2SAT 97
[2025-05-08 14:00] VITALS: PULSE 55; O2SAT 95
== END 2025-05-08 15:08 | disposition home or self-care (01) ==
PROVIDERS: Emergency Provider Family Medicine; Family Provider Family Medicine; PCP Family Medicine
DX: N39.0 Urinary tract infection, site not specified (principal); M54.50 Low back pain, unspecified; Z72.0 Tobacco use
CPT/HCPCS: 80053; 81001; 83605; 84145; 85025; 96365; 96366; 99283; 99284; J2543

== ENCOUNTER 2025-05-16 11:55 | Emergency (ER) | payer MEDICARE, SELFPAY ==
[2025-05-16 12:00] VITALS: BP 97/56; PULSE 68; RESP 20; TEMP 37; O2SAT 96; BMI 27.4
--- NOTE | 2025-05-16 12:14 | ED.FEMALEGU ---
HPI - Female Genitourinary <Shwetha Tello PA-C - Last Filed: 05/16/25 13:13> General Chief complaint: Urogenital-Female Stated complaint: Returning; UTI & Pain Time Seen by Provider: 05/16/25 12:10 Source: patient Mode of arrival: Ambulatory History of Present Illness HPI Narrative: Ms. Anne is a pleasant 85-year-old female with a past medical history of dementia, CKD 3, DM 2, heparin, AFib on eliquis, hypothyroidism who presents to the emergency department for concern of returning UTI x 2 days. She is here with her son, YONI Vasquez, whom she lives with. On 05/08/2025 patient was seen in the emergency department for concern of UTI, at that time her urine was somewhat inconclusive however she was started on azithromycin as she has multiple allergies and that times and azithromycin typically works for her UTIs. That was her 2nd ER visit via EMS from home due to severe low back pain secondary to the UTI. Patient's symptoms improved on the azithromycin however yesterday she started complaining of severe midline lumbar pain again which is typical of her UTI symptoms. She has not having any dysuria or frequency, she actually gets significant relief with going to the bathroom. She took a 1000 mg of Tylenol this morning which has helped with the pain slightly and she is now ambulatory independently. She denies abdominal pain, constipation, diarrhea, fevers, chills, flu-like symptoms, numbness, tingling, weakness of the lower extremities her POA states that they were informed ciprofloxacin as the only antibiotic that is effective for her. No urine culture was obtained on 05/08/2025. Related Data Home Medications ?Medication ?Instructions ?Recorded ?Confirmed cholecalciferol (vitamin D3) 1,250 1,250 mcg PO QWEEK 05/08/24 05/10/25 mcg (50,000 unit) capsule diazepam 2 mg tablet (Valium) 2 mg PO BEDTIME PRN 05/08/24 05/10/25 nitroglycerin 0.4 mg sublingual 0.4 mg sublingual Q5M PRN 05/08/24 05/10/25 tablet pantoprazole 40 mg tablet,delayed 40 mg PO DAILY 05/08/24 05/10/25 release losartan 50 mg tablet 50 mg PO DAILY 04/29/25 05/10/25 Previous Rx's ?Medication ?Instructions ?Recorded [id number] 1 cap PO BID #180 caps 02/24/25 12,000-38,000-60,000 unit capsule,delayed rel (Creon) ezetimibe 10 mg tablet 10 mg PO DAILY #90 tabs 03/18/25 glipizide 10 mg tablet 10 mg PO DAILY #90 tabs 03/18/25 levothyroxine 25 mcg tablet 25 mcg PO DAILY #90 tabs 03/18/25 memantine 10 mg tablet 10 mg PO BID #180 tabs 03/18/25 apixaban 5 mg tablet (Eliquis) 5 mg PO BID #180 tabs 03/22/25 atorvastatin 40 mg tablet 40 mg PO DAILY #90 tabs 03/22/25 dulaglutide 1.5 mg/0.5 mL 1.5 mg (0.5 mL) SUBCUT QWEEK #2 mL 03/22/25 subcutaneous pen injector (Trulicity) empagliflozin 25 mg tablet 25 mg PO DAILY #90 tabs 03/22/25 (Jardiance) pioglitazone 15 mg tablet 15 mg PO DAILY #90 tabs 04/14/25 doxycycline hyclate 100 mg tablet 100 mg PO BID #6 tabs 04/29/25 propranolol 20 mg tablet 20 mg PO BID #60 tabs 04/29/25 ciprofloxacin HCl 250 mg tablet 250 mg PO BID 5 days #10 tabs 05/16/25 lidocaine 5 % topical patch 1 patch topical DAILY #30 ea 05/16/25 (Lidoderm) Allergies Allergy/AdvReac Type Severity Reaction Status Date / Time cefuroxime Allergy Severe Anaphylaxis Verified 05/16/25 12:00 levofloxacin Allergy Mild unkown Verified 05/16/25 12:00 metronidazole Allergy Mild unknown Verified 05/16/25 12:00 nitrofurantoin Allergy Mild unknown Verified 05/16/25 12:00 sulindac Allergy Mild Swelling Verified 05/16/25 12:00 of Lip/Tongue/Throat Sulfa (Sulfonamide Allergy trouble Verified 05/16/25 12:00 Antibiotics) breathing cephalothin AdvReac Mild unknown Verified 05/16/25 12:00 doxycycline AdvReac Mild unkown Verified 05/16/25 12:00 prednisone AdvReac Mild unknown Verified 05/16/25 12:00 CODEINE Allergy Intermediate Uncoded 05/16/25 12:00 From MACRODANTIN Allergy Intermediate Uncoded 05/16/25 12:00 Review of Systems <Shwetha Tello PA-C - Last Filed: 05/16/25 13:13> Review of Systems ROS Unobtainable: All systems reviewed & are unremarkable except as noted in HPI and below Patient History <Shwetha Tello PA-C - Last Filed: 05/16/25 13:13> tobacco type: cigarettes Exam <Shwetha Tello PA-C - Last Filed: 05/16/25 13:13> Narrative Exam Narrative: GENERAL: 85 year old patient appears stated age. Well-developed patient, in no acute distress. HEAD: Atraumatic. Normocephalic. EYES: No scleral icterus. No injection or drainage. NECK: Trachea midline. Cervical ROM intact. CARDIOVASCULAR: Regular rate RESPIRATORY: ?Nonlabored respirations. ?Speaking in clear, full sentences. GASTROINTESTINAL: Abdomen soft, non-tender, nondistended. BS present. EXTREMITIES: No LE edema. BACK: Negative CVA tenderness bilaterally, negative midline spinal tenderness. Patient describes her subjective pain as in the mid low lumbar region. NEURO: Alert and oriented, pleasantly confused, she does rely on son to provide history. She walks independently without assistance. SKIN: No rash or erythema of visible areas Initial Vital Signs Initial Vital Signs: Vital Signs Temperature 98.6 F 05/16/25 12:00 Pulse Rate 68 05/16/25 12:00 Respiratory Rate 20 05/16/25 12:00 Blood Pressure 97/56 L 05/16/25 12:00 Pulse Oximetry 96 05/16/25 12:00 Oxygen Delivery Method Room Air 05/16/25 12:00 <Kathya Adams MD - Last Filed: 05/16/25 17:49> Initial Vital Signs Initial Vital Signs: Vital Signs Temperature 98.6 F 05/16/25 12:00 Pulse Rate 68 05/16/25 12:00 Respiratory Rate 20 05/16/25 12:00 Blood Pressure 97/56 L 05/16/25 12:00 Pulse Oximetry 96 05/16/25 12:00 Oxygen Delivery Method Room Air 05/16/25 12:00 Course <Shwetha Tello PA-C - Last Filed: 05/16/25 13:13> Orders Ordered: ED Orders 05/16/25 12:15 Urinalysis and Microscopic Stat Urine Culture Stat Discontinued Medications Ciprofloxacin (Ciprofloxacin 250 Mg Tablet) 250 mg PO NOW ONE Stop: 05/16/25 12:49 Last Admin: 05/16/25 12:59 Dose: 250 mg Documented By: YANA Lidocaine (Lidocaine 5% Patch) 1 each TOP NOW ONE Stop: 05/16/25 12:23 Last Admin: 05/16/25 12:30 Dose: 1 each Documented By: YANA Vital Signs Vital signs: Vital Signs - 8 hr 05/16/25 12:00 05/16/25 12:38 Temperature 98.6 F Pulse Rate 68 65 Respiratory Rate 20 18 Blood Pressure 97/56 L 164/70 H Pulse Oximetry 96 95 Oxygen Delivery Method Room Air Room Air <Kathya Adams MD - Last Filed: 05/16/25 17:49> Orders Ordered: ED Orders 05/16/25 12:15 Urinalysis and Microscopic Stat Urine Culture Stat Discontinued Medications Ciprofloxacin (Ciprofloxacin 250 Mg Tablet) 250 mg PO NOW ONE Stop: 05/16/25 12:49 Last Admin: 05/16/25 12:59 Dose: 250 mg Documented By: YANA Lidocaine (Lidocaine 5% Patch) 1 each TOP NOW ONE Stop: 05/16/25 12:23 Last Admin: 05/16/25 12:30 Dose: 1 each Documented By: YANA Vital Signs Vital signs: Vital Signs - 8 hr 05/16/25 12:00 05/16/25 12:38 Temperature 98.6 F Pulse Rate 68 65 Respiratory Rate 20 18 Blood Pressure 97/56 L 164/70 H Pulse Oximetry 96 95 Oxygen Delivery Method Room Air Room Air MDM - Female Genitourinary <Shwetha Tello PA-C - Last Filed: 05/16/25 13:13> Medical Records Attestation: I reviewed the patient's medical records. Lab Data Labs: Lab Results 05/16/25 Range/Units 12:15 Urine Color Yellow Urine Appearance Clear Urine pH 5.0 (4.5-8.0) Ur Specific [place] 1.020 (1.000-1.035) Urine Protein Negative (Negative) Urine Glucose (UA) 3+ H (Negative) g/dL Urine Ketones Negative (NEGATIVE) Urine Occult Blood Negative (Negative) Urine Nitrate Negative (Negative) Urine Bilirubin Negative (NEGATIVE) Urine Urobilinogen 0.2 (0.2) E.U./dL Ur Leukocyte Esterase Trace H (NEGATIVE) Urine RBC None seen (0-5/HPF) Urine WBC 5-10/hpf H (0-5/HPF) Ur Squamous Epith Cells 1-5 /hpf (0-5/HPF) Urine Bacteria Few (2-10) H (None) Ur Culture Indicated? Specimen cultured Micro UA Comment Vol Urine Centrifuged 10ml (spun) MDM Narrative Medical decision making narrative: 85-year-old female with a past medical history of dementia, CKD 3, DM 2, heparin, AFib on eliquis, hypothyroidism who presents to the emergency department for concern of returning UTI x 2 days. Differential diagnosis includes but isn't limited to cystitis, pyelonephritis, lumbar spondylosis, arthritis, etc. On exam patient is in no acute distress, nontoxic appearing, vital signs within normal limits except for mildly decreased blood pressure, typically her BPs are elevated so it was rechecked and is 164/70 which is much more typical fo rher. She is reporting mid low lumbar pain that is non reproducible with palpation but is worse with movement. POA reports recently finding out ciprofloxacin is the only antibiotic that works for the patient's UTIs, this is based on outside urine culture results. Patient's abdomen is soft and nontender, she is afebrile and she has not in significant amount of pain at this time because she took Tylenol at home. We will obtain urinalysis today, treat pain with Lidoderm. Urinalysis reveals trace leukocyte esterase, 5-10 urine WBCs, few bacteria. Urine culture sent. Will treat as acute UTI especially given the fact that urinalysis has some concerning signs despite recent antibiotic use. Her pain is mid lumbar region, this time not concerned for acute pyelonephritis, but we will treat with ciprofloxacin b.i.d. for 5 days. Discussed black box warning of fluoroquinolones with the patient and her POA. First dose of antibiotic given in the ED, remainder of antibiotics sent to pharmacy of choice in addition to Lidoderm. I discussed supportive care for musculoskeletal pain as well including heat therapy, Tylenol, Lidoderm. Discussed strict ED return precautions. Both the patient and her son verbalized understanding of all information and are happy with this plan. She is ambulatory and stable for discharge home. <Kathya Adams MD - Last Filed: 05/16/25 17:49> Lab Data Labs: Lab Results 05/16/25 Range/Units 12:15 Urine Color Yellow Urine Appearance Clear Urine pH 5.0 (4.5-8.0) Ur Specific [place] 1.020 (1.000-1.035) Urine Protein Negative (Negative) Urine Glucose (UA) 3+ H (Negative) g/dL Urine Ketones Negative (NEGATIVE) Urine Occult Blood Negative (Negative) Urine Nitrate Negative (Negative) Urine Bilirubin Negative (NEGATIVE) Urine Urobilinogen 0.2 (0.2) E.U./dL Ur Leukocyte Esterase Trace H (NEGATIVE) Urine RBC None seen (0-5/HPF) Urine WBC 5-10/hpf H (0-5/HPF) Ur Squamous Epith Cells 1-5 /hpf (0-5/HPF) Urine Bacteria Few (2-10) H (None) Ur Culture Indicated? Specimen cultured Micro UA Comment Vol Urine Centrifuged 10ml (spun) Discharge Plan Departure Patient Disposition: Home Clinical Impression: Acute UTI Low back pain Qualifiers: Chronicity: acute Back pain laterality: midline Sciatica presence: without sciatica Qualified Code(s): M54.50 - Low back pain, unspecified Instructions: DI for Low Back Pain, DI for Urinary Tract Infection (UTI) Activity Restrictions/Additional Instructions: Dear Ms. Anne, Thank you for coming to the emergency department. Today you were evaluated for concern of UTI and low back pain. Your urinalysis today did reveal bacteria and white blood cells which is concerning for an infection. I have started you on ciprofloxacin as we discussed. Please complete the full 5 day course of this antibiotic. We sent a urine culture to the lab today, which typically takes about 3 days to grow. This urine culture tells us what bacteria is growing and what antibiotics are effective against it. You will be called if a different antibiotic is required. Please rest, hydrate, use Tylenol and the prescribed lidocaine patches to help with the pain in addition to heating packs. Please return to the emergency department if you develop fevers, severe pain, inability to urinate or any other concerns. Please follow up with your primary care doctor within the next 2-3 days for ER follow-up. (If you do not have a PCP you can call [phone]. ?to schedule an appointment with an [facility] Primary Care Provider) IF YOU DEVELOP ANY NEW OR WORSENING SYMPTOMS, RETURN TO THE ER! Please read the attached instructions, they highlight more specific treatments and interventions for you at home. Thank you for letting me participate in your care, Shwetha Tello PA-C Prescriptions: New ciprofloxacin HCl 250 mg tablet 250 mg PO BID 5 Days Qty: 10 0RF lidocaine [Lidoderm] 5 % adhesive patch,medicated 1 patch topical DAILY Qty: 30 0RF Rx Instructions: leave on most painful area for up to 12 hrs No Action Creon 12,000-38,000 -60,000 unit capsule,delayed release(DR/EC) 1 cap PO BID Qty: 180 1RF Rx Instructions: administer with meals and/or snacks ezetimibe 10 mg tablet 10 mg PO DAILY Qty: 90 1RF levothyroxine 25 mcg tablet 25 mcg PO DAILY Qty: 90 1RF memantine 10 mg tablet 10 mg PO BID Qty: 180 1RF glipizide 10 mg tablet 10 mg PO DAILY Qty: 90 1RF Eliquis 5 mg tablet 5 mg PO BID Qty: 180 0RF atorvastatin 40 mg tablet 40 mg PO DAILY Qty: 90 0RF Trulicity 1.5 mg/0.5 mL pen injector 1.5 mg SUBCUT QWEEK Qty: 2 3RF Jardiance 25 mg tablet 25 mg PO DAILY Qty: 90 0RF pioglitazone 15 mg tablet 15 mg PO DAILY Qty: 90 0RF pantoprazole 40 mg tablet,delayed release (DR/EC) 40 mg PO DAILY cholecalciferol (vitamin D3) 1,250 mcg (50,000 unit) capsule 1,250 mcg PO QWEEK nitroglycerin 0.4 mg tablet, sublingual 0.4 mg sublingual Q5M PRN Rx Instructions: do not exceed 3 doses per episode diazepam [Valium] 2 mg tablet 2 mg PO BEDTIME PRN losartan 50 mg tablet 50 mg PO DAILY propranolol 20 mg tablet 20 mg PO BID Qty: 60 3RF doxycycline hyclate 100 mg tablet 100 mg PO BID Qty: 6 0RF Referrals: Hellen So DO [Primary Care Provider, Family Practice] Stand Alone Forms: Patient Portal/API ED Sign-out <Kathya Adams MD - Last Filed: 05/16/25 17:49> Cosign ED Attending Cosignature Attestation: I was immediately available in the department for consultation throughout this patient's visit. Kathya Adams MD
[2025-05-16 12:27] LABS: Appearance Urine UA CLEAR; Bilirubin Urine UA NEGATIVE (NEGATIVE); Color Urine UA YELLOW; Glucose Urine UA 3+ g/dL (Negative); Ketones Urine UA NEGATIVE (NEGATIVE); Nitrite Urine UA NEGATIVE (Negative); Occult Blood Urine UA NEGATIVE (Negative); Protein Urine UA NEGATIVE (Negative); Specific Gravity Urine UA 1.020 (1.000-1.035); Urobilinogen Urine UA 0.2 E.U./dL (0.2)
[2025-05-16] MEDS: LIDOCAINE 5% PATCH 1 EACH TOP (12:30)
[2025-05-16 12:38] VITALS: BP 164/70; PULSE 65; RESP 18; O2SAT 95
[2025-05-16 12:38] LABS: pH Urine UA 5.0 (4.5-8.0)
[2025-05-16 12:43] LABS: Culture Indicated Urine Specimen Cultured; Leukocyte Esterase Urine UA TRACE (NEGATIVE)
[2025-05-16] MEDS: CIPROFLOXACIN 250 MG TABLET PO (12:59)
== END 2025-05-16 13:00 | disposition home or self-care (01) ==
PROVIDERS: Emergency Provider Physician Assistant; Family Provider Family Medicine; PCP Family Medicine
DX: N39.0 Urinary tract infection, site not specified (principal); M54.50 Low back pain, unspecified; Z87.440 Personal history of urinary (tract) infections
CPT/HCPCS: 81001; 87086; 99283

== ENCOUNTER → 2025-06-20 14:29 | Outpatient (CLI) | payer MEDICARE, SELFPAY ==
--- NOTE | 2025-06-20 14:32 | DI.MRI.S_ITS ---
PROCEDURE: MR BRAIN (PITUITARY) O CON INDICATIONS: Alzheimer's. Pituitary mass seen on prior CT TECHNIQUE: Noncontrast sagittal and axial FLAIR, axial gradient echo, axial diffusion and ADC through the brain. Thin-slice sagittal and coronal T1 spin echo, coronal T2 fast spin echo through the pituitary. After the administration contrast, optional dynamic coronal T1 spin echo, thin-slice coronal and sagittal T1 spin echo images through the pituitary fossa; axial and coronal and sagittal T1 spin echo with fat saturation through the brain. COMPARISON: [facility], CT, CT HEAD/BRAIN WO CON, 04/15/2025, 13:10. FINDINGS: Image quality: This examination is limited by involuntary motion artifact. Pituitary Gland: A pituitary mass is again seen, measuring 15 x 14 mm in greatest axial dimension, with a craniocaudal extent of 23 mm. Mass effect is seen upon the ventral forebrain and the optic chiasm. 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 On postcontrast imaging, this mass demonstrates generalized slightly heterogeneous internal enhancement. CSF Spaces: Ventricles are normal in size and shape. Basal cisterns are patent. No extra-axial fluid collections. Brain: No intracranial bleeds or mass effects. No abnormal intracranial enhancement. Jeronimo-white matter interface is intact. Diffusion weighted images demonstrate no acute ischemic insults. Brainstem is normal. Normal intravascular flow voids are present. Note is made of age-appropriate brain parenchymal volume loss and chronic small vessel ischemic changes. Skull and face: Calvarial marrow is normal in signal. Orbits appear normal. Sinuses: Sinuses and mastoids are clear. 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 There is associated mass effect upon the ventral forebrain and upon the optic chiasm. Dictated by: Dandre Sung M.D. on 06/21/2025 at 13:32 Approved by: Dandre Sung M.D. on 06/21/2025 at 13:36
== END ==
PROVIDERS: Family Provider Family Medicine; PCP Family Medicine; Referring Provider Family Medicine; Visit Provider Psychiatry & Neurology Neurology
DX: D35.2 Benign neoplasm of pituitary gland (principal); G30.9 Alzheimer's disease, unspecified
CPT/HCPCS: 70553; A9579

== ENCOUNTER → 2025-09-10 11:38 | Outpatient (CLI) | payer MEDICARE, SELFPAY ==
[2025-09-10 12:12] LABS: Add Manual Diff / Slide Review NO; Hematocrit 39.3 % (36-46); Hemoglobin 13.3 g/dL (12.0-16.0); Lymphocytes Absolute Auto 2600 /uL (1100-4500); Mean Corpuscular HGB Conc 33.7 % (30-36); Mean Corpuscular Hemoglobin 30.5 PG (26-34); Mean Corpuscular Volume 90.5 fL (80-100); Platelet Count 295 X10^3/uL (150-400)
[2025-09-10 12:24] LABS: Hemoglobin A1C% w Est Avg Glu 6.8 % (4.0-6.0)
[2025-09-10 15:40] LABS: Microalbumi Creatinin Ratio Ur 40.0 ug/mg CR (<30)
[2025-09-10 18:37] LABS: Alanine Aminotransferase 19 IU/L (<35); Albumin 4.0 g/dL (3.5-5.0); Albumin Globulin Ratio 1.3 (1.0-2.8); Alkaline Phosphatase 124 U/L (38-126); Blood Urea Nitrogen 21 mg/dL (7-17); Calcium 9.7 mg/dL (8.4-10.2); Carbon Dioxide 24 mmol/L (22-32); Chloride 110 mmol/L (98-107); Cholesterol 185 mg/dL (140-199); Estimated Glomerular Filt Rate 45 mL/min (>60); Globulin 3.2 g/dL (1.7-4.1); Glucose 137 mg/dL (70-99); HDL Cholesterol 45 mg/dL (40-60); HEMOLYSIS < 15 (0-50); Potassium 4.6 mmol/L (3.4-5.1); Sodium 143 mmol/L (137-145); Total Protein 7.2 g/dL (6.3-8.2); Triglycerides 236 mg/dL (35-150)
== END ==
PROVIDERS: PCP Family Medicine; Referring Provider Family Medicine; Visit Provider Family Medicine
DX: E78.5 Hyperlipidemia, unspecified (principal); E11.22 Type 2 diabetes mellitus with diabetic chronic kidney disease; N18.30 Chronic kidney disease, stage 3 unspecified; K86.1 Other chronic pancreatitis
CPT/HCPCS: 36415; 80053; 80061; 82043; 82570; 83036; 85025